=== PATIENT | male | born 1960 | race Caucasian/White ===

== ENCOUNTER 2022-03-17 10:22 | Outpatient (CLI) | payer MEDICAID, SELFPAY ==
[2022-03-17 12:50] LABS: Chloride* 107 mmol/L (96-114); Potassium* 4.1 mmol/L (3.6-5.1); Sodium* 145 mmol/L (135-149)
[2022-03-17 12:52] LABS: Cholesterol* 243 mg/dL (90-199)
[2022-03-17 12:53] LABS: Blood Urea Nitrogen* 26 mg/dL (7-30); Calcium* 9.6 mg/dL (8.4-10.6); Carbon Dioxide* 28 mmol/L (20-32); Creatinine* 1.2 mg/dL (0.5-1.5); Estimated Glomerular Filt Rate 69 ml/min; Glucose* 92 mg/dL (60-115); HDL Cholesterol* 48 mg/dL (>=40); LDL Cholesterol Calculated 169 mg/dL (<100); Triglycerides* 132 mg/dL (40-149)
[2022-03-17 13:23] LABS: PSA Screen* 0.53 ng/mL (0.10-4.00)
[2022-03-17 13:27] LABS: Ferritin* 28.8 ng/mL (17.9-464.0)
== END 2022-03-17 10:23 | disposition home or self-care (01) ==
PROVIDERS: PCP Family Medicine; Visit Provider Family Medicine
DX: Z00.00 Encounter for general adult medical examination without abnormal findings (principal); I10 Essential (primary) hypertension; G25.81 Restless legs syndrome; Z12.5 Encounter for screening for malignant neoplasm of prostate; Z13.6 Encounter for screening for cardiovascular disorders
CPT/HCPCS: 80048; 80061; 82728; 84153

== ENCOUNTER 2023-02-01 11:15 | Outpatient (CLI) | payer MEDICAID, SELFPAY | END 2023-02-01 11:16 | disposition home or self-care (01) | PROVIDERS: PCP Family Medicine; Visit Provider Family Medicine | DX: R06.09 Other forms of dyspnea (principal); I10 Essential (primary) hypertension; I60.9 Nontraumatic subarachnoid hemorrhage, unspecified | CPT/HCPCS: 80048; 80061; 83880; 85025 ==